=== PATIENT | male | born 1955 | race Caucasian/White ===

== ENCOUNTER → 2016-12-25 | Outpatient (CLI) | payer BC ==
[~2016-12-25] MED LIST: GINK40TA3 PO; GLUCPOW41 PO; MULT-506 PO; NAPR1TAB9 PO; OMEG10007 PO
--- NOTE | 2016-12-25 12:40 | DIAGNOSTIC IMAGING REPORT ---
CT OF THE LEFT FOOT CT DOSE: 200.23 mGy.cm HISTORY: Postoperative pain pain TECHNIQUE: Multiaxial CT images of the left foot were performed and reformatted in the sagittal and coronal plane without the use of contrast. COMPARISON: Routine series dated 07/30/2016 FINDINGS: Findings of a prior osteotomy distal aspect calcaneus. There is evidence for transverse screw and plate fixation. There has been near complete healing of this region. There is no evidence for a bony destructive process. There are findings of an osteotomy base of first metatarsal. There are 2 transverse screws traversing the osteotomy line. Images obtained Show only partial healing with evidence for an incomplete fusion and or delayed healing. No lytic or blastic process. Moderate degenerative changes of the osseous structures are noted throughout. There is no evidence for a true lytic or blastic process. IMPRESSION: 1. Operative changes consistent with an anterior calcaneal osteotomy. Healing is near-complete. 2. Osteotomy base of first metatarsal showing only a small component of healing with the remainder of the osteotomy line showing delayed union and/or developing nonunion. 3. No evidence for lytic or blastic process. 4. Moderate generalized degenerative change throughout. Electronically signed by: Sky Lee M.D. 12/25/2016 12:38 PM Dictated Date/Time: 12/25/2016 12:29 PM
== END | disposition home or self-care (01) ==
LOC: C.CTS 11:40
PROVIDERS: ATTEND Podiatrist Foot & Ankle Surgery
DX: M20.12 Hallux valgus (acquired), left foot (principal); Z98.890 Other specified postprocedural states